=== PATIENT | male | born 1990 | race Caucasian/White ===

== ENCOUNTER 2018-12-18 10:37 | Emergency (ER) | payer OTHER ==
--- NOTE | 2018-12-18 11:01 | EDM.PDOC ---
ED HPI GENERAL MEDICAL PROBLEM - General Chief Complaint: Respiratory Problem Stated Complaint: SORE THROAT , CONGESTION Time Seen by Provider: 12/18/18 10:54 - History of Present Illness INITIAL COMMENTS - FREE TEXT/NARRATIVE: 28 y/o male here with sinus congestion, cough and sore throat. Patient states he has been having sinus congestion for the past 3 days. No fevers or chills. No other sick contacts. Denies any allergies. Has been taking over the counter mucinex with minimal improvement. Works in the [employer]. Denies any allergies. No nausea or vomiting. - Related Data Home Meds: Home Meds Amoxicillin/Potassium Clav [Augmentin 875-125 Tablet] 1 each PO BID 5 Days #10 tablet 12/18/18 [Rx] Benzonatate [Tessalon Perle] 100 mg PO TID PRN #30 capsule 12/18/18 [Rx] ED ROS GENERAL - Review of Systems Review Of Systems: ROS reveals no pertinent complaints other than HPI. ED EXAM, GENERAL - Physical Exam Exam: See Below General Appearance: Alert, WD/WN, No Apparent Distress Nose: Nasal Swelling Throat/Mouth: Normal Inspection, Other (cobblestoning in posterior tongue, no exudates) Head: Sinus Tenderness Neck: Other (some cervical lymphadenopathy) Respiratory/Chest: No Respiratory Distress, Lungs Clear Cardiovascular: Normal Peripheral Pulses, Regular Rate, Rhythm GI/Abdominal: Normal Bowel Sounds, Soft, Non-Tender Departure - Departure Time of Disposition: 10:57 Disposition: Home, Self-Care 01 Clinical Impression: Acute sinusitis - Discharge Information Prescriptions: Amoxicillin/Potassium Clav [Augmentin 875-125 Tablet] 1 each PO BID 5 Days #10 tablet Benzonatate [Tessalon Perle] 100 mg PO TID PRN #30 capsule PRN Reason: Cough Instructions: Sinusitis, Adult Additional Instructions: The following information is given to patients seen in the emergency department who are being discharged to home. This information is to outline your options for follow-up care. We provide all patients seen in our emergency department with a follow-up referral. The need for follow-up, as well as the timing and circumstances, are variable depending upon the specifics of your emergency department visit. If you don't have a primary care physician on staff, we will provide you with a referral. We always advise you to contact your personal physician following an emergency department visit to inform them of the circumstance of the visit and for follow-up with them and/or the need for any referrals to a consulting specialist. The emergency department will also refer you to a specialist when appropriate. This referral assures that you have the opportunity for follow-up care with a specialist. All of these measure are taken in an effort to provide you with optimal care, which includes your follow-up. Under all circumstances we always encourage you to contact your private physician who remains a resource for coordinating your care. When calling for follow-up care, please make the office aware that this follow-up is from your recent emergency room visit. If for any reason you are refused follow-up, please contact the Emergency Department at and asked to speak to the emergency department charge nurse. Follow-up with your PCP if not improving. Stay hydrated and finish full course of antibiotics.
== END 2018-12-18 11:41 | disposition home or self-care (01) ==
LOC: MW.ED 10:37
DX: J01.90 Acute sinusitis, unspecified (principal); R59.0 Localized enlarged lymph nodes
CPT/HCPCS: 99283